=== PATIENT | female | born 1970 | race Caucasian/White ===

== ENCOUNTER 2025-06-10 10:50 | Inpatient (IN) | payer OTHER, SELFPAY ==
[2025-06-09 10:01] VITALS: BP 172/110
--- NOTE | 2025-06-09 10:23 | ED.GENMED ---
History of Present Illness
General
Chief Complaint: Chest Pain
Source: patient and spouse
Exam Limitations: none
Time Seen by Provider: 06/09/25 10:23
Nursing documentation reviewed up to this point in time: agreed with
History of Present Illness
History of Present Illness:
Patient presents to ED secondary to persistent mid sternal/upper abdominal pain, wrapping around to the back, over the past 2 days, along with decreased appetite. Symptoms started on approximately 1 hour after having birthday dinner, consisting of
chicken Parmesan. Since then, pain has been fluctuating in severity, without vomiting or diarrhea. Denies direct trauma. Denies fever or chills. Denies diarrhea. Denies recent travel or surgery. Denies leg pain or swelling. Denies previous
history of similar symptoms
Review of Systems
Review of Systems
Allergies reviewed?: Yes
All Other Systems: ROS reviewed and negative except as documented in HPI and ROS
Constitutional: Reports no symptoms
Respiratory: Reports no symptoms
Cardiac: Reports chest pain
ABD/GI: Reports abdominal pain; Denies vomiting or diarrhea
Musculoskeletal: Reports no symptoms
Skin: Reports no symptoms
Neurological: Reports no symptoms
Phy Exam
Physical Exam
Physical Exam:
Physical Exam
General: mild painful distress, not acutely ill. afebrile
Head: nc/at. eomi
Neck: supple. no meningeal signs.
Heart: tachycardic, no murmur, regular rhythm.
Lungs: no acute respiratory distress. clear bilaterally
Abdomen: normal bowel sounds. no distention. mild RUQ tenderness to palpation
Neuro: alert and oriented x 3. no focal neurological deficits
Skin: no rash
Psychiatric: well kept. interactive and cooperative
Extremities: no edema. no calf tenderness.
Scores
Heart Score for Chest Pain Patients
STEMI patient?: Not applicable
Course
Orders/Labs/Results
Orders:
Orders
06/09/25 10:00
Electrocardiogram (*1) Urgent
Reason for Study: Chest Pain
Clear Liquid
At Your Request: Full Participation
EKG- Treatment ONCE
06/09/25 10:36
Test Result ONCE
US Abdomen Complete/Upper Urgent
Comment:
Reason For Exam: RUQ pain
06/09/25 10:43
Complete Blood Count/With Diff Urgent
Comprehensive Metabolic Panel Urgent
HCG, Serum Qualitative Screen Urgent
Lipase Urgent
Magnesium Urgent
06/09/25 13:19
0.9% Sodium Chloride 500 ml [Nss] 500 ml IV BOLUS
06/09/25 13:32
Piperacillin/Tazo 3.375 Gram [Zosyn] 3.375 gram in 50 ml IV NOW
06/09/25 13:52
Admit Patient As Directed
Co-Sign Provider:
Level of Care: Observation services
Assign to:: Medical/Surgical
Physician / Group: Nasreen
Diagnosis: Acute calculous cholecystitis
Code Status As Directed
Resuscitation Status: Full Code
HYDROmorphone [Dilaudid] 0.5 mg IV Q2HPRN PRN
HYDROmorphone [Dilaudid] 1 mg IV Q2HPRN PRN
Ketorolac [Toradol] 10 mg IV Q6HPRN PRN
Prochlorperazine [Compazine] 10 mg IV Q6HPRN PRN
Activity As Directed
Activity Level: Out of Bed-Early Mobility
Anti-embolism (SAEED) Hose As Directed
Type: Thigh high
Intake/ Output As Directed
Frequency: Per unit guidelines
Vital Signs As Directed
Frequency: Per unit guidelines
PRN Pain Medication Management As Directed
May give lesser potent ordered pain med per pt: Yes
preference::
Protocol:: Medication orders for pain may be administered in a
manner that supports deferring to patient preference
when the pt is:
- Requesting an ordered lesser potent pain medication.
Least to most potent pain medications are defined
as: acetaminophen < NSAID < tramadol < opioids
(morphine, oxycodone, hydromorphone).
- Requesting a lesser dose of the same medication IF
ORDERED.
- Requesting a less intrusive route of administration
if both routes are prescribed by the provider (PO <
IV).
06/09/25 13:53
Pneumatic Compression Sleeves As Directed
Type: Knee high
Rx Incentive Spirometry [RESP] Routine
Frequency: q1h while awake
# of times per hour: 10
DX Deep Vein Thrombosis Video Routine
06/09/25 14:00
KCl 20 Meq/D5.45%Sodchl 1000ML [D5/0.45%NSS with KCL 20 MEQ] 20 meq in 1,000 ml IV 100 mls/hr
Piperacillin/Tazo 3.375 Gram [Zosyn] 3.375 gram in 50 ml IV Q6H
06/09/25 18:00
Enoxaparin Sodium [Lovenox] 40 mg SC QPM
06/09/25 20:00
Piperacillin/Tazo 3.375 Gram [Zosyn] 3.375 gram in 50 ml IV Q6H
06/10/25 Breakfast
NPO
Allow oral meds: No
Allow clear liquids: Sips of Clears
NPO with Ice Chips: Yes
06/10/25 06:34
Complete Blood Count/No Diff IN AM
06/10/25 08:00
Pantoprazole [Protonix IV] 40 mg IV DAILY
Abnormal Lab Results
06/09/25
10:43
WBC 16.5 H 10^3/uL
(4.8-10.8)
Abs Immat Gran (auto) 0.1 H 10^3/uL
(0-0.05)
Absolute Neuts (auto) 13.7 H 10^3/uL
(1.4-6.5)
Absolute Monos (auto) 1.1 H 10^3/uL
(0.1-0.6)
Neutrophils % 82.7 H %
(42.2-75.2)
Lymphocytes % 9.8 L %
(20.5-51.1)
Sodium 132 L mmol/L
(135-145)
BUN 6 L mg/dl
(7-17)
Creatinine 0.4 L mg/dL
(0.6-1.0)
Glucose 132 H mg/dl
(70-99)
Total Bilirubin 1.8 H mg/dl
(0.2-1.3)
06/09/25 10:43
06/09/25 10:43
Vital Signs
Initial and Last Documented VS:
Initial Vital Signs
Temp Pulse Resp BP Pulse Ox
98.4 F 119 20 172/110 97
06/09/25 10:01 06/09/25 10:01 06/09/25 10:01 06/09/25 10:01 06/09/25 10:01
Last Documented Vital Signs
Temp Pulse Resp BP Pulse Ox
99.6 F 101 13 137/80 98
06/10/25 10:47 06/10/25 10:47 06/10/25 10:47 06/10/25 10:47 06/10/25 10:47
MDM/Problems Addressed
MDM/Problems Addressed:
History, exam, blood work, and ultrasound, concerning for acute cholecystitis.
Discussed with on-call surgery, Dr. Downey, who will come and evaluate patient in ED
Patient evaluated ED by Dr. Downey. Will proceed to the OR. Recommends Zosyn in ED.
*Pulse Oximetry
SaO2: 97
Oxygen Mode of Delivery: Room air
Patient hypoxic: no
*EKG
Interpreted by ED Provider?: Yes
EKG Intrepretation Date: 06/09/25
Heart Rate: 103
Rate: tachycardiac
Rhythm: sinus
[place]: normal axis
Ischemia: ST depression
*Critical Care Note
Total Time (30-74mins, 75-104mins- exclusive of procedures): Not Applicable
ED Attending Note
-
Portions of this chart may have been created with voice recognition software.� Occasional wrong word or��sound alike� substitutions may have occurred due to the inherent limitations of voice recognition software.
Discharge Plan
Departure
Patient Disposition: Admit
Date of Disposition: 06/09/25
Time of Disposition: 13:33
Presentation/result/management discussed w/ accepting MD/DO:
Discharge Problem:
Acute cholecystitis
Interventions
Interventions:
*Risk Screen - Suicide Last Done: 06/09/25 16:30
*General Assessment Last Done: 06/09/25 10:01
*Neglect/Abuse Screening Last Done: 06/09/25 10:01
*ED- Fall Risk Assessment Last Done: 06/09/25 10:50
*ED COVID-19 Vaccine History Last Done: 06/09/25 10:50
*ED Influenza Vaccine History Last Done: 06/09/25 10:50
*Nursing Disposition Last Done: 06/09/25 15:50
ED- Cardiac Assessment Last Done: 06/09/25 10:50
Discharge Date and Time
Discharge Date/Time: 06/09/25 16:18
[2025-06-09 10:41] VITALS: BP 136/99
[2025-06-09 10:50] VITALS: BP 136/99; BMI 32.3
[2025-06-09 11:01] LABS: Hematocrit 39.5 % (37.0-47.0); Hemoglobin 13.1 g/dL (12.0-16.0); Mean Corp Hgb Conc. 33.2 g/dL (33.0-37.0); Mean Corpuscular Volume 82.8 fL (81.0-99.0); Nucleated Red Blood Cells % 0 %; Platelet Count 342 10^3/uL (130-400); Red Cell Dist. Width 13.6 % (11.5-14.5)
[2025-06-09 11:07] LABS: HCG, Serum Qualitative Screen Negative
[2025-06-09 11:11] LABS: ALT (SGPT) 20 U/L (0-35); AST (SGOT) 21 U/L (14-36); Albumin 4.2 g/dl (3.5-5.0); Alkaline Phosphatase 73 U/L (38-126); Blood Urea Nitrogen 6 mg/dl (7-17); Calcium 9.5 mg/dl (8.4-10.2); Carbon Dioxide 25 mmol/L (22-30); Chloride 99 mmol/L (98-107); Estimated Creatinine Clearance 124 ml/min; Glucose 132 mg/dl (70-99); Lipase 71 U/L (23-300); Magnesium 2.0 mg/dl (1.6-2.3); Potassium 3.7 mmol/L (3.5-5.1); Sodium 132 mmol/L (135-145); Total Protein 7.5 g/dl (6.3-8.2); eGFR > 60.00
[2025-06-09] MEDS: NSS 500 IV (13:45)
[2025-06-09] MEDS: ZOSYN 50 IV ×2 (13:45→20:21)
[2025-06-09] MEDS: TORADOL 10 MG IV ×2 (14:09→20:27)
[2025-06-09] MEDS: D5/0.45%NSS with KCL 20 MEQ 1000 IV (14:10)
--- NOTE | 2025-06-09 14:14 | CON.GS ---
Consultation
-
Date/Time Consultation Performed: 06/09/25
Requesting Provider: Jose
Performing Provider: Nasreen
Reason for Consultation: Abd pain
Medical History
-
Chief Complaint: Abd pain
History of Present Illness:
54F with acute onset upper abd pain that began as retrosternal and progressed to epigastric pain with band like distribution about the upper quadrants with radiation to her back. Pain is mod-sev, waxing and waning. Began after Saturday night dinner of
chicken parm. Denies f/c/n/v, denies changes to stool/urine. Never had an episode like this before.
Past Medical History
Past Medical History: Reviewed & Noncontributory
Past Surgical History: Reviewed & Noncontributory
Social History
Tobacco: Non-Smoker
Personal:
Living: With Family
Family History
Family History: Reviewed & Noncontributory
Allergies / Home Medications
Allergy/AdvReac Type Severity Reaction Status Date / Time
No Known Allergies Allergy Verified 06/09/25 10:04
�Medication �Instructions �Recorded �Confirmed �Type
lactobacillus combination no.4 3 1 cell PO DAILY daily 06/09/25 06/09/25 History
billion cell capsule (Probiotic)
multivitamin 1 tab PO DAILY 06/09/25 06/09/25 History
omeprazole 20 mg capsule,delayed 20 mg PO DAILY 06/09/25 06/09/25 History
release
Review of Systems
-
A 10 point review of systems was completed, and was negative except as per HPI.
Physical Exam
Vital Signs
Temp Pulse Resp BP Pulse Ox
98.1 F 107 15 136/99 97
06/09/25 10:50 06/09/25 10:50 06/09/25 10:50 06/09/25 10:50 06/09/25 10:50
06/08/25 06/09/25 06/10/25
06:59 06:59 06:59
Actual Weight 90.718 kg
Body Mass Index (BMI) 32.3
Lab Results
06/09/25 10:43
06/09/25 10:43
WBC 16.5 10^3/uL (4.8-10.8) H 06/09/25 10:43
Hgb 13.1 g/dL (12.0-16.0) 06/09/25 10:43
Hct 39.5 % (37.0-47.0) 06/09/25 10:43
Plt Count 342 10^3/uL (130-400) 06/09/25 10:43
Abs Immat Gran (auto) 0.1 10^3/uL (0-0.05) H 06/09/25 10:43
Neutrophils % 82.7 % (42.2-75.2) H 06/09/25 10:43
Physical Exam
General: Well Developed, Well Nourished and No Apparent Distress
HEENT: Normocephalic and Anicteric
GI: Soft and Tender (ttp to RUQ > epigastrium)
Skin: Warm and Dry
Neuro: AO x 3
Psych: Calm
Data Reviewed
-
Ultrasound: Image Personally Visualized and interpreted, Report Reviewed by me, Discussed with Physician, Discussed with Patient and Discussed with Family
Labs: Labs Reviewed by me, Discussed with Physician, Discussed with Patient and Discussed with Family
Assessment / Plan
-
54F with ACC
AFVSS, ttp to RUQ>epigastrium
WBC 16K
Tbili 1.8, other LFTs WNL
US wth sludge/stones, no GBWT, no PCF, CBD 5mm
Plan:
Admit to surgery
IV abx
Plan for lap CCY with cholangiogram
CLD for now, NPO@[place]
DVT ppx
PRN pain meds / anti-emetics
Given limited OR availability, may defer surgery until tomorrow
D/w pt and at bedside.
Risks, benefits, complications and alternatives discussed in detail. Procedure described in detail with visual aids.
--- NOTE | 2025-06-09 15:47 | EDRN ---
this RN called the receiving unit and notified them that paper report was going to be tubed up
[2025-06-09 15:48] VITALS: BP 164/71
[2025-06-09 16:35] VITALS: BMI 32.2
[2025-06-09 16:43] VITALS: BP 129/87
[2025-06-09] MEDS: DILAUDID 0.5 MG IV (18:00)
[2025-06-09] MEDS: DILAUDID 1 MG IV (22:17)
[2025-06-09 23:00] VITALS: BP 138/90
[2025-06-10] VITALS (13 sets, daily range): BP systolic 124–153; BP diastolic 77–92; BMI 32.7
[2025-06-10] MEDS: D5/0.45%NSS with KCL 20 MEQ 1000 IV ×2 (01:15→22:47)
[2025-06-10] MEDS: ZOSYN 50 IV ×3 (01:16→20:34)
[2025-06-10] MEDS: DILAUDID 1 MG IV (01:21)
[2025-06-10 07:02] LABS: Hematocrit 41.6 % (37.0-47.0); Hemoglobin 13.9 g/dL (12.0-16.0); Mean Corp Hgb Conc. 33.4 g/dL (33.0-37.0); Mean Corpuscular Volume 84.0 fL (81.0-99.0); Platelet Count 376 10^3/uL (130-400); Red Cell Dist. Width 13.7 % (11.5-14.5)
[2025-06-10 07:47] LABS: ALT (SGPT) 555 U/L (0-35); AST (SGOT) 548 U/L (14-36); Albumin 4.1 g/dl (3.5-5.0); Alkaline Phosphatase 304 U/L (38-126); Blood Urea Nitrogen 9 mg/dl (7-17); Calcium 9.2 mg/dl (8.4-10.2); Carbon Dioxide 26 mmol/L (22-30); Chloride 101 mmol/L (98-107); Estimated Creatinine Clearance > 125 ml/min; Glucose 131 mg/dl (70-99); Potassium 4.2 mmol/L (3.5-5.1); Sodium 135 mmol/L (135-145); Total Protein 7.4 g/dl (6.3-8.2); eGFR > 60.00
--- NOTE | 2025-06-10 07:51 | W.PN.GS2 ---
Today's Communication / Plan
-
`
Assessment / Plan
-
Assessment: 54 y/o female admitted with acute calculous cholecystitis and possible choledocholithiasis
leukocytosis/elevated LFTs today suggests probable choledocholithiasis vs severe ACC
given US without bile duct dilation and US with small stones/sludge discussed continuing with plan for cholecystectomy but performing intraoperative cholangiogram for diagnostic and potential therapeutic treatment if choledocholithiasis confirmed
lap diogenes was reviewed in detail including operative technique, alternative tx options, benefits and risks such as but not limited to bleeding, infectious and wound related complications, iatrogenic injury to surrounding structures, bile duct
injury, bile leak. discussed potential need for post op ERCP if duct unable to be cleared laparoscopically.
any concerns or questions for the patient were confirmed to be fully addressed.
Plan: OR this AM for lap diogenes
Zosyn
Subjective Data
-
Date of Service: June 10, 2025
pt seen and examined
epigastric pain worse overnight and radiating into back
c/o HIGHTOWER this AM
Objective Data
-
Intake and Output
06/09/25 06/10/25 06/11/25
06:59 06:59 06:59
Intake Total 960 / 960
Balance 960 / 960
Intake:
Oral fluids 960 / 960
Other:
Number of approximated MODERATE 1
amounts of urine
Vital Signs
Temp Pulse Resp BP Pulse Ox
98.8 F 108 16 138/90 97
06/09/25 23:00 06/09/25 23:00 06/09/25 23:00 06/09/25 23:00 06/09/25 23:00
Lab Results
06/10/25 06:34
06/10/25 06:34
Calcium 9.2 mg/dl (8.4-10.2) 06/10/25 06:34
Magnesium 2.0 mg/dl (1.6-2.3) 06/09/25 10:43
Total Bilirubin 5.5 mg/dl (0.2-1.3) H D 06/10/25 06:34
Direct Bilirubin 3.2 mg/dl (0.0-0.4) H 06/10/25 06:34
AST 548 U/L (14-36) H* 06/10/25 06:34
ALT 555 U/L (0-35) H* 06/10/25 06:34
Alkaline Phosphatase 304 U/L (38-126) H 06/10/25 06:34
Total Protein 7.4 g/dl (6.3-8.2) 06/10/25 06:34
Albumin 4.1 g/dl (3.5-5.0) 06/10/25 06:34
Physical Exam
-
NAD AAOx3
ABD: soft, ND, TTP epigastrium, no R/R/G
[2025-06-10] MEDS: PROTONIX IV IV (07:52)
--- NOTE | 2025-06-10 07:57 | W.SUR.PREOP ---
Pre-Operative Surgical Note
-
I have examined this patient prior to the performance of the scheduled procedure.
The patient's condition is unchanged from the time of the current History and
Physical and the patient is able to undergo the scheduled procedure.
[2025-06-10] MEDS: ZOSYN IV (08:43)
--- NOTE | 2025-06-10 08:44 | PTCARENOTE ---
Received pt. during change of shift. Tech alerted nurse to temp of 101.3 for pt. Pt. NPO pending procedure. This nurse texted MD asking for Tylenol to treat temp, MD did not find necessary, however wanted to take pt. to OR right away. Nurse Conchis
from OR called, report given. Pt taken down with volunteer to the OR.
--- NOTE | 2025-06-10 10:52 | W.IMMPOSTOP ---
Addendum entered and electronically signed by Adalberto Salomon MD 06/10/25 11:13:
#[id number]
Original Note:
Surgical Immed Post Op Note
-
Primary Surgeon: Adalberto Salomon MD
Assisting Surgeon: Fabrice Bernstein
Pre-op Diagnosis: Acute calculous cholecystitis
Post-op Diagnosis: Acute calculous cholecystitis with hydrops; choledocholithiasis with obstruction
Procedure Performed: Laparoscopic cholecystectomy with intraoperative cholangiogram
Anesthesia Type: GETA +0.25% Marcaine
Specimen / Cultures: Gallbladder
Estimated Blood Loss: 30 mL
Complications: None immediate
Operative Findings: Tensely distended and hydropic gallbladder surrounded in an acute inflammatory omental peel with a few chronic adhesions as well. Cyst needle decompression to aid in gallbladder grasping/exposure with return of hydropic bile.
Cystic artery and duct identified with achieving critical view of safety. Intraoperative cholangiogram identified cut off at ampulla with meniscus sign consistent with few millimeter sized distal common bile duct stone. Cholangiocatheter advanced
under fluoroscopic guidance and passed distal to ampulla but stone too large to push forward and choledocholithiasis remains. Gallbladder removed off liver bed with some local spillage of stone/bile all of which was completely cleared. Gallbladder
extracted at epigastric port site. Friable inflammatory peel responsible for blood loss. No significant surgical bleeding and hemostasis assured at end of procedure.
Plan: Consult GI for ERCP
Maintain Zosyn
N.p.o. except sips/ice chips pending GI evaluation and timing of ERCP
Patient's was updated postoperatively in the waiting area
--- NOTE | 2025-06-10 11:32 | CM ---
Patient chart reviewed
off floor currently
Procedure Performed: Laparoscopic cholecystectomy with intraoperative cholangiogram
CM will follow for discharge planning needs
--- NOTE | 2025-06-10 11:44 | CON.GI ---
Addendum entered and electronically signed by Lena Ceron MD 06/10/25 19:05:
I saw and examined the patient.
The PILE DRIVING SUPERVISOR or PA's note was reviewed and I agree with the note.
Comment: 54-year-old female with history of GERD presenting with epigastric pain 06/09/2025, noted to have leukocytosis and elevated bilirubin to 1.8 on admission with other LFTs being normal, today LFTs jennifer to total bilirubin of 5.5 with a direct
of 3.2, AST of 548, ALT of 555 and alkaline phosphatase of 304.Her white count today went from 16.5-27.5. Laparoscopic cholecystectomy showed acute calculous cholecystitis with hydrops and intraoperative cholangiogram showed choledocholithiasis
with obstruction. She had ERCP with Dr. Michael, choledocholithiasis was noted, biliary sphincterotomy and balloon extraction of the stones performed. Major papilla was also dilated with 6 mm balloon dilator.
Prior to admission, no significant GI symptoms, no previous EGD or colonoscopy.
- Acute cholecystitis status post laparoscopic cholecystectomy and choledocholithiasis status post ERCP
Clear liquid diet
Currently on Zosyn for broad-spectrum antibiotic coverage given leukocytosis
Monitor LFTs
Advance diet as tolerated tomorrow if patient feeling well
Will follow-up
- Needs outpatient colonoscopy for screening
Addendum entered and electronically signed by LAURA Enriquez 06/10/25 12:25:
cont abx
reviewed with spouse going to GI labs with patient and available for consent via phone this afternoon if needed
Original Note:
Consultation
-
Date/Time Consultation Requested: 06/10/25 1100
Date/Time Consultation Performed: 06/10/25 1140
Requesting Provider: Adalberto Salmoon MD
Performing Provider: LAURA Mascorro, Rafi Michael MD
Reason for Consultation: choledocholithiasis
Medical History
Chief Complaint / HPI
Chief Complaint: abdominal pain
History of Present Illness:
Pt is a 54yo with hx ? GERD on PPI, prior , presents with onset of epigastric band like pain. On admission mild leukocytosis and bili 1.8 with rise after admission to WBC 27,500 bili 5.5, D bili 3.2, AST 548, ALT 555, alk phos 304 and
initial normal lipase of 71. US on admission with Moderate gallbladder sludge and many tiny gallstones. No secondary findings to suggest acute cholecystitis. She was taken to OR today for lap diogenes with concern for few MM sized distal CBD stones
on cholangiogram . Asked to see for ERCP.
In review with patient and spouse no recent wt loss or wt loss med, with occasional GERD. She began with post prandial pain on Saturday with progressive symptoms. She did not some dark urine since admission. She denies any chronic
anticoagulation or NSAID use. She denies any odynophagia, dysphagia, diarrhea, constipation or rectal bleeding. No prior hx EGD or colonoscopy in past.
Past Medical History
Past Medical History: GERD
Past Surgical History:
Social History
Tobacco: Non-Smoker
Alcohol: Occasional
Drug: None
Personal:
Living: With Family
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
Family History
Family History: Other
Allergies / Home Medications
Allergy/AdvReac Type Severity Reaction Status Date / Time
No Known Allergies Allergy Verified 06/09/25 10:04
�Medication �Instructions �Recorded
lactobacillus combination no.4 3 1 cell PO DAILY Supplement 06/09/25
billion cell capsule (Probiotic)
multivitamin 1 tab PO DAILY Supplement 06/09/25
omeprazole 20 mg capsule,delayed 20 mg PO DAILY GERD 06/09/25
release
Review of Systems
-
History Source: Patient and Family
Constitutional: Reports No Symptoms
EENT: Reports No Symptoms
Respiratory: Reports No Symptoms
Abdomen/GI: Reports Abdominal Pain
: Reports No Symptoms
Musculoskeletal: Reports No Symptoms
Skin: Reports No Symptoms
Neurological: Reports Weakness
Endocrine: Reports No Symptoms
Hematologic/Lymphatic: Reports No Symptoms
Vital Signs
Temp Pulse Resp BP Pulse Ox
99 F 92 13 132/77 97
06/10/25 11:28 06/10/25 11:30 06/10/25 11:30 06/10/25 11:30 06/10/25 11:30
Physical Exam
Exam
General: Well Developed, Well Nourished and No Apparent Distress
HEENT: Normocephalic and Anicteric
Respiratory: Clear
Cardiac: Regular Rhythm
GI: Soft, Non Distended and Tender (minimal post-op)
Musculoskeletal: No Clubbing and No Cyanosis
Skin: Warm and Dry
Neuro: Awake, Alert and Other (waking up post-op)
Psych: Calm
Results
WBC 27.5 10^3/uL (4.8-10.8) H 06/10/25 06:34
Hgb 13.9 g/dL (12.0-16.0) 06/10/25 06:34
Hct 41.6 % (37.0-47.0) 06/10/25 06:34
MCV 84.0 fL (81.0-99.0) 06/10/25 06:34
Plt Count 376 10^3/uL (130-400) 06/10/25 06:34
Absolute Neuts (auto) 13.7 10^3/uL (1.4-6.5) H 06/09/25 10:43
Sodium 135 mmol/L (135-145) 06/10/25 06:34
Potassium 4.2 mmol/L (3.5-5.1) 06/10/25 06:34
Chloride 101 mmol/L (98-107) 06/10/25 06:34
Carbon Dioxide 26 mmol/L (22-30) 06/10/25 06:34
BUN 9 mg/dl (7-17) 06/10/25 06:34
Creatinine 0.5 mg/dL (0.6-1.0) L 06/10/25 06:34
Calcium 9.2 mg/dl (8.4-10.2) 06/10/25 06:34
Total Bilirubin 5.5 mg/dl (0.2-1.3) H D 06/10/25 06:34
AST 548 U/L (14-36) H* 06/10/25 06:34
ALT 555 U/L (0-35) H* 06/10/25 06:34
Alkaline Phosphatase 304 U/L (38-126) H 06/10/25 06:34
Lipase 71 U/L (23-300) 06/09/25 10:43
Diagnostic Image Results:
06/09/25 US Abdomen Complete/Upper
IMPRESSION: Moderate gallbladder sludge and many tiny gallstones. No secondary findings to suggest acute cholecystitis. Clinical and laboratory correlation recommended.
Prior GI Procedures:
EGD: none
Colonoscopy: none
Assessment / Plan
-
Pt is a 54yo with hx ? GERD on PPI, prior , presents with onset of epigastric band like pain. On admission mild leukocytosis and bili 1.8 with rise after admission to WBC 27,500 bili 5.5, D bili 3.2, AST 548, ALT 555, alk phos 304 and
initial normal lipase of 71. US on admission with Moderate gallbladder sludge and many tiny gallstones. No secondary findings to suggest acute cholecystitis. She was taken to OR today for lap diogenes with concern for few MM sized distal CBD stones
on cholangiogram . Asked to see for ERCP.
-choledocholithiasis
-s/p lap diogenes
-rise in LFT's after admission
other med problems:
-GERD
-hx
PLAN:
reviewed with pt and spouse for EUS/ERCP agreeable to proceed
NPO
IVF
trend labs will add lipase to am labs for baseline
hold Lovenox and add compression stocking
reviewed risk/benefits of procedure not limited to bleeding, infection, perforation, pancreatitis, reaction to medication
reviewed with Dr. Michael to proceed today
-
-
Thank you for consultation and allowing me to participate in the patient's care. Please call the web content editor GI physician during the after hours with any questions or concerns.
[2025-06-10 12:22] LABS: Lipase 124 U/L (23-300)
[2025-06-10] MEDS: D5/0.45%NSS with KCL 20 MEQ IV (16:28)
[2025-06-10] MEDS: TORADOL 10 MG IV (17:47)
[2025-06-11] MEDS: ZOSYN 50 IV ×4 (02:59→21:37)
[2025-06-11] MEDS: DILAUDID 1 MG IV ×3 (03:02→21:41)
[2025-06-11 07:17] VITALS: BP 114/67
[2025-06-11] MEDS: PROTONIX IV 40 MG IV (08:16)
[2025-06-11] MEDS: TORADOL 10 MG IV ×2 (08:16→17:29)
[2025-06-11] MEDS: FLUSH (NSS) 2 FLUSH IV (08:18)
[2025-06-11 08:28] LABS: Hematocrit 35.9 % (37.0-47.0); Hemoglobin 11.4 g/dL (12.0-16.0); Mean Corp Hgb Conc. 31.8 g/dL (33.0-37.0); Mean Corpuscular Volume 88.4 fL (81.0-99.0); Platelet Count 245 10^3/uL (130-400); Red Cell Dist. Width 14.0 % (11.5-14.5)
[2025-06-11 08:40] LABS: ALT (SGPT) 333 U/L (0-35); AST (SGOT) 161 U/L (14-36); Albumin 2.9 g/dl (3.5-5.0); Alkaline Phosphatase 229 U/L (38-126); Blood Urea Nitrogen 11 mg/dl (7-17); Calcium 8.0 mg/dl (8.4-10.2); Carbon Dioxide 31 mmol/L (22-30); Chloride 102 mmol/L (98-107); Estimated Creatinine Clearance > 125 ml/min; Glucose 147 mg/dl (70-99); Potassium 4.0 mmol/L (3.5-5.1); Sodium 136 mmol/L (135-145); Total Protein 5.8 g/dl (6.3-8.2); eGFR > 60.00
[2025-06-11] MEDS: NSS (PRESERVATIVE FREE) 10 ML IV (09:07)
[2025-06-11] MEDS: D5/0.45%NSS with KCL 20 MEQ 1000 IV ×2 (09:07→21:37)
--- NOTE | 2025-06-11 09:15 | W.PN.GI.CBS2 ---
Addendum entered and electronically signed by Ai Hall DO 06/11/25 10:05:
The patient was seen and examined by me independently in collaboration with the nurse practitioner.
Past medical history/social history/medications/allergies/family history reviewed.
Lab data and imaging data reviewed.
Maribeth is s/p cholecystectomy with positive IOC followed by EUS/ERCP which confirmed choledocholithiasis, after which, biliary sphincterotomy and balloon extraction was performed. The biliary tree was swept and pus was found.
This morning, Patient reports significant improvement in pain but still has 5/10 discomfort in her RUQ, which is different than her presenting symptoms, which was more epigastric. LFTs are downtrending and Leukocytosis improving, 27.5K --> 12.6K.
Endorses wanting to try and eat.
Plan:
Advance to clear liquids, advance as tolerated
Add lipase on for todays labs
Continue antibiotics, would recommend completing full course upon d/c for cholangitis and cholecystitis
Trend Labs to ensure continued improvement in LFTs
Original Note:
Today's Communication / Plan
-
s/p lap diogenes, EUS and ERCP 06/10 as noted
still with some RUQ pain this am but epigastric pain improved
LFT with some downward trend and WBC improving
ok to proceed with clears advance as tolerated
cont IVF and abx
trend labs
cont compression stocking
surgery team follow post diogenes
Assessment / Plan
-
Pt is a 54yo with hx ? GERD on PPI, prior , presents with onset of epigastric band like pain. On admission mild leukocytosis and bili 1.8 with rise after admission to WBC 27,500 bili 5.5, D bili 3.2, AST 548, ALT 555, alk phos 304 and
initial normal lipase of 71. US on admission with Moderate gallbladder sludge and many tiny gallstones. No secondary findings to suggest acute cholecystitis. She was taken to OR 06/10 for lap diogenes with concern for few MM sized distal CBD stones
on cholangiogram. She proceeded to EUS/ERCP
06/11- EUS - There was dilation in the common bile duct which measured up to 10 mm - One stone was visualized endosonographically in the lower third of the main bile duct There was no sign of significant pathology in the pancreatic head and
pancreatic body. There was no sign of significant pathology in the ampulla. There was no evidence of significant pathology in the left lobe of the liver. No specimens collected.
06/11- ERCP - The major papilla appeared normal- A filling defect consistent with a stone was seen on the cholangiogram. The common bile duct was mildly dilated. Choledocholithiasis was found. Complete removal was accomplished
by biliary sphincterotomy and balloon extraction. A biliary sphincterotomy was performed. Major papilla was successfully dilated. The biliary tree was swept and pus was found.
Laboratory Tests
06/09/25 06/10/25 06/11/25
10:43 06:34 07:49
WBC 16.5 H 27.5 H 12.6 H
Total Bilirubin 1.8 H 5.5 H D
Direct Bilirubin 3.2 H
AST 21 548 H*
ALT 20 555 H*
Alkaline Phosphatase 73 304 H
06/11/25
07:50
WBC
Total Bilirubin 4.8 H
Direct Bilirubin
AST 161 H
ALT 333 H
Alkaline Phosphatase 229 H
-choledocholithiasis s/p ERCP with stone extraction, papilla dilated with tree swept with pus found
-s/p lap diogenes
-leukocytosis
-rise in LFT's after admission
other med problems:
-GERD
-hx
PLAN:
s/p lap diogenes, EUS and ERCP 06/10 as noted
still with some RUQ pain this am but epigastric pain improved
LFT with some downward trend and WBC improving
ok to proceed with clears advance as tolerated
cont IVF and abx
trend labs
cont compression stocking
surgery team follow post diogenes
Subjective
Subjective
Date of Service: June 11, 2025
on clear diet, pt noted with epigastric pain 06/04 on admission now more right sided pain 01/02
Objective
Data Reviewed
Laboratory Data:
Laboratory Results
06/11/25 07:49
06/11/25 07:50
Laboratory Results
PT Cancelled 06/10/25 11:48
INR Cancelled 06/10/25 11:48
Magnesium 2.0 mg/dl (1.6-2.3) 06/09/25 10:43
Total Bilirubin 4.8 mg/dl (0.2-1.3) H 06/11/25 07:50
AST 161 U/L (14-36) H 06/11/25 07:50
ALT 333 U/L (0-35) H 06/11/25 07:50
Alkaline Phosphatase 229 U/L (38-126) H 06/11/25 07:50
Lipase 124 U/L (23-300) 06/10/25 06:34
Vital Signs and I&O:
Vital Signs
Temp Pulse Resp BP Pulse Ox
97.9 F 67 17 114/67 94
06/11/25 07:17 06/11/25 07:17 06/11/25 07:17 06/11/25 07:17 06/11/25 09:12
I&O
06/10/25 06/11/25 06/12/25
06:59 06:59 06:59
Intake Total 960 / 960 1959
Balance 960 / 960 1959
Physical Exam
Physical Exam
HEENT: Anicteric and Moist mucous membranes
Cardiology: Normal Sinus Rhythm
Pulmonary: Clear
GI: Soft, Non Distended, Tender (RUQ) and Other (diogenes incision intact )
Extremities: No Edema
Neuro: Non Focal
[2025-06-11] MEDS: DILAUDID 0.5 MG IV ×2 (09:53→13:08)
[2025-06-11 11:27] LABS: Lipase 61 U/L (23-300)
--- NOTE | 2025-06-11 12:00 | W.PN.GS2 ---
Addendum entered and electronically signed by Getachew Downey MD 06/11/25 12:19:
I saw and examined the patient.
The [employer]'s note was reviewed and I agree with the note.
Comment: Still c/o pain, minimal appettite, ttp on exam to epigastrium mainly, lipase WNL, LFTs and WBC improved. CLD today, prn pain meds, IV abx.
Original Note:
Today's Communication / Plan
-
clears
analgesics
Assessment / Plan
-
Assessment: 54 y/o female presenting with acute calculous cholecystitis with choledocholithiasis/cholangitis
POD 2 lap diogenes with ACC/hyrops noted intraop with IOC demonstrating choledocholithiasis
PPD 1 ercp with sphincterotomy/balloon extraction of stone, pus found in biliary tree
AFVSS
Leukocytosis improved
LFT's trending down but still elevated, lipase normal
Plan:
Given OR and EGD findings, continue antibiotics. Anticipate total of 5 day post operative course with transition to PO upon d/c. Will continue IV zosyn while inpatient
Trend labs/exams
IVF until tolerating good PO intake
Continue clears, advance diet once nausea/pain improving
Appreciate GI following with us
Subjective Data
-
Date of Service: June 11, 2025
Pt seen and examined at bedside with Dr. Downey. Denies vomiting, mild nausea this am. Pain to epigastrium and RUQ.
Objective Data
-
Intake and Output
06/10/25 06/11/25 06/12/25
06:59 06:59 06:59
Intake Total 960 / 960 1959 / 1959
Balance 960 / 960 1959
Intake:
Oral fluids 960 / 960 360 / 360
IV fluids (Total) 1450 / 1450
Normosol 550 / 550
IV piggybacks 150 / 150
Other:
Number of approximated MODERATE 1 2
amounts of urine
Vital Signs
Temp Pulse Resp BP Pulse Ox
97.9 F 67 17 114/67 94
06/11/25 07:17 06/11/25 07:17 06/11/25 07:17 06/11/25 07:17 06/11/25 09:12
Lab Results
06/11/25 07:49
06/11/25 07:50
Calcium 8.0 mg/dl (8.4-10.2) L 06/11/25 07:50
Magnesium 2.0 mg/dl (1.6-2.3) 06/09/25 10:43
Total Bilirubin 4.8 mg/dl (0.2-1.3) H 06/11/25 07:50
Direct Bilirubin 3.2 mg/dl (0.0-0.4) H 06/10/25 06:34
AST 161 U/L (14-36) H 06/11/25 07:50
ALT 333 U/L (0-35) H 06/11/25 07:50
Alkaline Phosphatase 229 U/L (38-126) H 06/11/25 07:50
Total Protein 5.8 g/dl (6.3-8.2) L D 06/11/25 07:50
Albumin 2.9 g/dl (3.5-5.0) L 06/11/25 07:50
Physical Exam
-
NAD AAOx3
ABD: soft, ND, expected TTP epigastrium/ruq, no R/R/G
Incisions well approximated, intact glue
[2025-06-11 15:34] VITALS: BP 119/64
[2025-06-11] MEDS: MYLICON 80 MG PO (17:25)
[2025-06-11] MEDS: MIRALAX 17 GRAMS PO (17:25)
[2025-06-11] MEDS: ROXICODONE PO (17:25)
[2025-06-11] MEDS: COMPAZINE 10 MG IV (17:29)
[2025-06-11] MEDS: ROXICODONE 5 MG PO (18:40)
[2025-06-11 23:50] VITALS: BP 111/67
[2025-06-12] MEDS: TORADOL 10 MG IV ×2 (02:13→12:13)
[2025-06-12] MEDS: ZOSYN 50 IV ×3 (02:15→13:38)
[2025-06-12] MEDS: DILAUDID 1 MG IV (06:46)
[2025-06-12 07:15] LABS: Hematocrit 34.1 % (37.0-47.0); Hemoglobin 10.9 g/dL (12.0-16.0); Mean Corp Hgb Conc. 32.0 g/dL (33.0-37.0); Mean Corpuscular Volume 85.3 fL (81.0-99.0); Platelet Count 270 10^3/uL (130-400); Red Cell Dist. Width 14.1 % (11.5-14.5)
[2025-06-12 07:40] LABS: ALT (SGPT) 299 U/L (0-35); AST (SGOT) 167 U/L (14-36); Albumin 2.8 g/dl (3.5-5.0); Alkaline Phosphatase 264 U/L (38-126); Blood Urea Nitrogen 7 mg/dl (7-17); Calcium 8.1 mg/dl (8.4-10.2); Carbon Dioxide 31 mmol/L (22-30); Chloride 104 mmol/L (98-107); Estimated Creatinine Clearance > 125 ml/min; Glucose 131 mg/dl (70-99); Potassium 3.8 mmol/L (3.5-5.1); Sodium 136 mmol/L (135-145); Total Protein 5.5 g/dl (6.3-8.2); eGFR > 60.00
[2025-06-12 07:42] VITALS: BP 127/76
[2025-06-12] MEDS: COMPAZINE 10 MG IV (08:50)
[2025-06-12] MEDS: PROTONIX IV 40 MG IV (08:50)
[2025-06-12] MEDS: NSS (PRESERVATIVE FREE) 10 ML IV (08:50)
[2025-06-12] MEDS: D5/0.45%NSS with KCL 20 MEQ IV (08:51)
--- NOTE | 2025-06-12 08:55 | W.PN.GI.CBS2 ---
Today's Communication / Plan
-
Pain overall improving. Lipase normal, no evidence of post-ERCP pancreatitis. LFTs downtrending. GI will sign off, please call with questions
Assessment / Plan
-
Maribeth is s/p cholecystectomy with positive IOC followed by EUS/ERCP which confirmed choledocholithiasis, after which, biliary sphincterotomy and balloon extraction was performed. The biliary tree was swept and pus was found.
06/11- EUS - There was dilation in the common bile duct which measured up to 10 mm - One stone was visualized endosonographically in the lower third of the main bile duct There was no sign of significant pathology in the pancreatic head and
pancreatic body. There was no sign of significant pathology in the ampulla. There was no evidence of significant pathology in the left lobe of the liver. No specimens collected.
06/11- ERCP - The major papilla appeared normal- A filling defect consistent with a stone was seen on the cholangiogram. The common bile duct was mildly dilated. Choledocholithiasis was found. Complete removal was accomplished
by biliary sphincterotomy and balloon extraction. A biliary sphincterotomy was performed. Major papilla was successfully dilated. The biliary tree was swept and pus was found.
PLAN:
s/p lap diogenes, EUS and ERCP 06/10 as noted
Continue abx, evidence of cholangitis and cholecystitis
Lipase normal
Suspect pain is normal post-operative pain, now slowly improving
LFTs improving
Advance diet per surgery
GI will sign off, please call with questions
Subjective
Subjective
Date of Service: June 12, 2025
Patient seen in follow-up. She is slightly better this morning. Both her RUQ abdominal pain and migraine are improved. She was able to tolerate some toast last night. She feels the simethicone also helped.
Objective
Data Reviewed
Laboratory Data:
Laboratory Results
06/12/25 07:02
06/12/25 07:02
Laboratory Results
PT Cancelled 06/10/25 11:48
INR Cancelled 06/10/25 11:48
Magnesium 2.0 mg/dl (1.6-2.3) 06/09/25 10:43
Total Bilirubin 3.7 mg/dl (0.2-1.3) H 06/12/25 07:02
AST 167 U/L (14-36) H 06/12/25 07:02
ALT 299 U/L (0-35) H 06/12/25 07:02
Alkaline Phosphatase 264 U/L (38-126) H 06/12/25 07:02
Lipase 61 U/L (23-300) 06/11/25 07:50
Vital Signs and I&O:
Vital Signs
Temp Pulse Resp BP Pulse Ox
99.0 F 84 16 127/76 95
06/12/25 07:42 06/12/25 07:42 06/12/25 07:42 06/12/25 07:42 06/12/25 07:42
I&O
06/11/25 06/12/25 06/13/25
06:59 06:59 06:59
Intake Total 1959 3400 / 3400
Balance 1959 3400 / 3400
Physical Exam
Physical Exam
HEENT: Anicteric and Moist mucous membranes
Cardiology: Normal Sinus Rhythm
Pulmonary: Clear
GI: Soft, Non Distended, Tender (RUQ) and Other (diogenes incision intact )
Extremities: No Edema
Neuro: Non Focal
--- NOTE | 2025-06-12 10:40 | PTCARENOTE ---
Pt reported ongoing migraine, made aware, new order provided, see MAR.
[2025-06-12] MEDS: FIORICET 1 TAB PO (10:52)
--- NOTE | 2025-06-12 13:11 | CM ---
Alert awake oriented patient who lives with Jimbo and 12 yo dgt in a 2 story home with 2 steps to enter and 12 steps to bath/bedroom.She is indepedent in all ADLs. She had Lap choly 06/10/25 . Starting tolerating diet . No adaptive devices.
NO VN/SnF hx
PHaramcy Jojo Vinson .
PCP None pt given Residence [facility] handout.
PLAN Home with family no needs
--- NOTE | 2025-06-12 13:42 | W.PN.GS2 ---
Today's Communication / Plan
-
dispo planning
Assessment / Plan
-
Assessment: 54 y/o female presenting with acute calculous cholecystitis with choledocholithiasis/cholangitis
POD 2 lap diogenes with ACC/hyrops noted intraop with IOC demonstrating choledocholithiasis
PPD 2 ercp with sphincterotomy/balloon extraction of stone, pus found in biliary tree
AFVSS
Leukocytosis resolved
LFT's continue trending down
Tolerating diet
Plan:
Plan 5 days of ABX total, will transition to PO upon d/c
D/C IVF
Fioricet added for HIGHTOWER prn, stop IV narcotics
Continue LFD
Appreciate GI following with us
Subjective Data
-
Date of Service: June 12, 2025
Pt seen and examined at bedside with Dr Austin. Denies n/v. Tolerating diet. Incisional soreness with movement. Headache has been bothersome over the past few days intermittently.
Objective Data
-
Intake and Output
06/11/25 06/12/25 06/13/25
06:59 06:59 06:59
Intake Total 1959 3400 / 3400
Balance 1959 3400 / 3400
Intake:
Oral fluids 360 / 360 1200 / 1200
IV fluids (Total) 1450 / 1450 1100 / 1100
Normosol 550 / 550
IV piggybacks 150 / 150 1100 / 1100
Other:
Number of approximated MODERATE 2 4
amounts of urine
Vital Signs
Temp Pulse Resp BP Pulse Ox
99.0 F 84 16 127/76 95
06/12/25 07:42 06/12/25 07:42 06/12/25 07:42 06/12/25 07:42 06/12/25 07:42
Lab Results
06/12/25 07:02
06/12/25 07:02
Calcium 8.1 mg/dl (8.4-10.2) L 06/12/25 07:02
Magnesium 2.0 mg/dl (1.6-2.3) 06/09/25 10:43
Total Bilirubin 3.7 mg/dl (0.2-1.3) H 06/12/25 07:02
Direct Bilirubin 3.2 mg/dl (0.0-0.4) H 06/10/25 06:34
AST 167 U/L (14-36) H 06/12/25 07:02
ALT 299 U/L (0-35) H 06/12/25 07:02
Alkaline Phosphatase 264 U/L (38-126) H 06/12/25 07:02
Total Protein 5.5 g/dl (6.3-8.2) L 06/12/25 07:02
Albumin 2.8 g/dl (3.5-5.0) L 06/12/25 07:02
Physical Exam
-
NAD AAOx3
ABD: soft, ND, expected TTP epigastrium/ruq, no R/R/G
Incisions well approximated, intact glue
--- NOTE | 2025-06-12 13:48 | W.DS.TRANS ---
Addendum entered and electronically signed by LAURA Edge 06/12/25 15:57:
dictated #[id number]
Original Note:
DC Summary - [employer]
-
Discharge Instructions:
Discharge Diagnosis/Procedures Acute calculous cholecystitis,
choledocholithiasis. Laparoscopic
cholecystectomy with cholangiogram. ERCP for
sphincterotomy and balloon stone extraction
Diet As tolerated,Low Fat
Additional Diets Low-fat diet for 2 to 3 weeks postop. Smaller
meals and portion sizes as abdominal bloating
and distention are common for the first week
postop.
Activity No strenuous activity
Additional Activity No lifting over 20 pounds for 4 weeks
postoperatively
Driving Restrictions No driving for 2 to 3 days or if using narcotics
Bathing Restrictions OK to Shower
Wound Care Glue at surgical sites typically peels off in 2
to 3 weeks
Instructions:
Stand-Alone Forms:
Changes to Home Medications: No
Discharge Medications:
DC Medications w/original date entered in [facility]
lactobacillus combination no.4 3 billion cell capsule (Probiotic) 1 cell PO DAILY Supplement 06/09/25
multivitamin 1 tab PO DAILY Supplement 06/09/25
omeprazole 20 mg capsule,delayed release 20 mg PO DAILY GERD 06/09/25
acetaminophen 325 mg tablet 650 mg (2 x 325 mg) PO Q4HPRN PRN mild pain #1 tab 06/12/25
amoxicillin 875 mg-potassium clavulanate 125 mg tablet 1 tab PO Q12 antibiotic #7 tabs 06/12/25
ibuprofen 200 mg tablet 400 - 600 mg (2 - 3 x 200 mg) PO Q6HPRN PRN moderate pain #1 tab 06/12/25
oxycodone 5 mg tablet 5 mg PO Q4HPRN PRN breakthrough/severe pain #8 tabs 06/12/25
Home Medication Changes
Pending Results: No
[2025-06-12 14:55] VITALS: BP 141/84
== END 2025-06-12 15:03 | disposition home or self-care (01) | DRG 418 ==
LOC: 3 WEST ACU 10:50
PROVIDERS: Internal Medicine Gastroenterology; Nurse Practitioner Adult Health; Registered Nurse; Surgery; ADMITTING PHYSICIAN Surgery; CONSULT PHYSICIAN Internal Medicine Gastroenterology; EMERGENCY PHYSICIAN Emergency Medicine
PROC: 0FT44ZZ Resection of Gallbladder, Percutaneous Endoscopic Approach (ICD-10-PCS; 2025-06-10)
PROC: BF4CZZZ Ultrasonography of Hepatobiliary System, All (ICD-10-PCS; 2025-06-10)
PROC: BF131ZZ Fluoroscopy of Gallbladder and Bile Ducts using Low Osmolar Contrast (ICD-10-PCS; 2025-06-10)
PROC: 0F778ZZ Dilation of Common Hepatic Duct, Via Natural or Artificial Opening Endoscopic (ICD-10-PCS; 2025-06-10)
PROC: 0FC98ZZ Extirpation of Matter from Common Bile Duct, Via Natural or Artificial Opening Endoscopic (ICD-10-PCS; 2025-06-10)
DX: K80.63 Calculus of gallbladder and bile duct with acute cholecystitis with obstruction (principal); K82.1 Hydrops of gallbladder; K21.9 Gastro-esophageal reflux disease without esophagitis; Z87.891 Personal history of nicotine dependence; Z79.899 Other long term (current) drug therapy
CPT/HCPCS: 74300; 74330; 76000; 76700; 80053; 82248; 83690; 83735; 84703; 85025; 85027; 88304; 93005; 99285; A4300; C1726; C1769; J1610